=== PATIENT | female | born 1950 | race Caucasian/White ===

== ENCOUNTER 2020-08-16 11:58 | Emergency (ER) | payer MEDICARE ==
[2020-08-16 13:21] LABS: #Monocytes 0.4 10x3/uL (0.0-1.1); #Neutrophils 3.9 10x3/uL (1.5-8.4); %Basophils 0.3 % (0.0-2.0); %Eosinophils 0.6 % (0.0-6.0); %Lymphocytes 33.6 % (18.0-47.0); %Monocytes 5.8 % (0.0-10.0); %Neutrophils 59.5 % (40.0-75.0); Hemoglobin 13.6 g/dL (12.0-15.5); Mean Corpuscular HGB CONC 32.7 g/dL (32.0-36.0); Mean Corpuscular Hemoglobin 32.2 pg (27.0-33.0); Mean Corpuscular Volume 98.3 fl (81.6-98.3); Mean Platelet Volume 10.3 fl (7.4-10.4); Platelet Count 256 10x3/uL (150-450); RBC Distribution Width 13.1 % (11.5-14.5); Red Blood Cell (RBC) Count 4.23 10x6/uL (3.90-5.03); White Blood Cell (WBC) Count 6.5 10x3/uL (3.5-10.5)
[2020-08-16 13:31] LABS: ALT (SGPT) 21 U/L (8-55); AST (SGOT) 31 U/L (5-34); Albumin 4.6 g/dL (3.4-4.8); Alkaline Phosphatase 95 U/L (40-110); Anion Gap 14 mmol/L (10-20); BUN (Urea Nitrogen) 20 mg/dL (9.8-20.1); Bilirubin, Total 0.5 mg/dL (0.2-1.2); Calc. Creatinine Clearance 0 mL/min (70-130); Calcium 9.9 mg/dL (7.8-10.44); Carbon Dioxide 27 mmol/L (23-31); Chloride 104 mmol/L (98-107); Globulin 3.5 g/dL (2.4-3.5); Glucose 107 mg/dL (83-110); Potassium 3.8 mmol/L (3.5-5.1); Protein, Total 8.1 g/dL (5.8-8.1); Sodium 141 mmol/L (136-145)
== END 2020-08-16 15:11 | disposition home or self-care (01) ==
LOC: CSHERS 11:58
DX: M54.12 Radiculopathy, cervical region (principal)
CPT/HCPCS: 70496; 70498; 71045; 80053; 84484; 85025; 93005

== ENCOUNTER 2021-11-09 08:08 | Observation (INO) | payer MEDICARE ==
[2021-11-09 08:58] LABS: #Eosinphils 0.1 10x3/uL (0.0-0.5); #Monocytes 0.3 10x3/uL (0.0-1.1); #Neutrophils 3.6 10x3/uL (1.5-8.4); %Basophils 0.7 % (0.0-2.0); %Eosinophils 1.1 % (0.0-6.0); %Lymphocytes 27.1 % (18.0-47.0); %Monocytes 5.9 % (0.0-10.0); %Neutrophils 64.7 % (40.0-75.0); Hemoglobin 13.1 g/dL (12.0-15.5); Mean Corpuscular HGB CONC 33.6 g/dL (32.0-36.0); Mean Corpuscular Hemoglobin 31.3 pg (27.0-33.0); Mean Corpuscular Volume 93.1 fl (81.6-98.3); Mean Platelet Volume 9.9 fl (7.4-10.4); Platelet Count 258 10x3/uL (150-450); Red Blood Cell (RBC) Count 4.19 10x6/uL (3.90-5.03); White Blood Cell (WBC) Count 5.6 10x3/uL (3.5-10.5)
[2021-11-09 09:09] LABS: ALT (SGPT) 10 U/L (8-55); AST (SGOT) 20 U/L (5-34); Albumin 4.4 g/dL (3.4-4.8); Alkaline Phosphatase 96 U/L (40-110); Anion Gap 14 mmol/L (10-20); BUN (Urea Nitrogen) 11 mg/dL (9.8-20.1); Bilirubin, Total 0.2 mg/dL (0.2-1.2); Calc. Creatinine Clearance 0 mL/min (70-130); Calcium 9.7 mg/dL (7.8-10.44); Carbon Dioxide 29 mmol/L (23-31); Chloride 101 mmol/L (98-107); Globulin 2.9 g/dL (2.4-3.5); Glucose 134 mg/dL (83-110); Potassium 4.3 mmol/L (3.5-5.1); Protein, Total 7.3 g/dL (5.8-8.1); Sodium 140 mmol/L (136-145)
[2021-11-09] MEDS ORDERED: Lidocaine 1% w/Epinephrine 1:100K 20 ML VIAL ONE (09:43)
[2021-11-09 09:49] LABS: Bilirubin Neg (Negative); Blood, Urine Negative (Negative); Clarity Clear (Clear); Glucose, Urine (Dipstick) Normal (Negative); Ketone, Urine Negative (Negative); Leukocyte Negative (Negative); Nitrite Negative (Negative); Protein, Urine (Dipstick) Negative (Neg-Trace); Specific Gravity, Urine 1.005 (1.002-1.036); Urobilinogen Normal mg/dL (Less than 2)
[2021-11-09] MEDS ORDERED: Aspirin 325 MG TAB ONE (09:51)
[2021-11-09] MEDS ORDERED: Boostrix 0.5 ML (Tdap) VIAL ONE ×2 (09:51→10:40)
[2021-11-09] MEDS ORDERED: Iopamidol 370 76% 100 ML VIAL ONE (10:29)
[2021-11-09] MEDS ORDERED: hydrALAZINE 20 MG/ML VIAL SLOW IVP PRN (10:47)
[2021-11-09] MEDS ORDERED: Acetaminophen 325 MG TAB PO PRN (10:47)
[2021-11-09 12:43] VITALS: BMI 22.6
[2021-11-09] MEDS ORDERED: Atorvastatin Calcium 40 MG TAB PO SCH (21:00)
[2021-11-09] MEDS ORDERED: Morphine 4 MG/ML VIAL SLOW IVP SCH (23:30)
[2021-11-10] MEDS: Morphine 2 MG/ML VIAL SLOW IVP PRN ×2 (04:42→09:20)
[2021-11-10 05:15] LABS: #Eosinphils 0.1 10x3/uL (0.0-0.5); #Monocytes 0.6 10x3/uL (0.0-1.1); #Neutrophils 5.4 10x3/uL (1.5-8.4); %Basophils 0.4 % (0.0-2.0); %Eosinophils 0.7 % (0.0-6.0); %Monocytes 7.6 % (0.0-10.0); %Neutrophils 64.1 % (40.0-75.0); Hemoglobin 14.3 g/dL (12.0-15.5); Mean Corpuscular HGB CONC 35.1 g/dL (32.0-36.0); Mean Corpuscular Hemoglobin 32.1 pg (27.0-33.0); Mean Corpuscular Volume 91.3 fl (81.6-98.3); Mean Platelet Volume 10.2 fl (7.4-10.4); Platelet Count 289 10x3/uL (150-450); RBC Distribution Width 12.1 % (11.5-14.5); Red Blood Cell (RBC) Count 4.46 10x6/uL (3.90-5.03); White Blood Cell (WBC) Count 8.4 10x3/uL (3.5-10.5)
[2021-11-10 05:30] LABS: Anion Gap 16 mmol/L (10-20); BUN (Urea Nitrogen) 12 mg/dL (9.8-20.1); Calc. Creatinine Clearance 64 mL/min (70-130); Calcium 9.9 mg/dL (7.8-10.44); Carbon Dioxide 27 mmol/L (23-31); Cardiac Risk 4.4 (Less than 4.5); Chloride 102 mmol/L (98-107); Cholesterol 275 mg/dl (< 200 Desired); Glucose 117 mg/dL (83-110); HDL Cholesterol 63 mg/dL (>60 Neg Risk); LDL Cholesterol, Calculated 166 mg/dL; Potassium 3.7 mmol/L (3.5-5.1); Sodium 141 mmol/L (136-145); Triglycerides 229 mg/dL (Less than 150)
[2021-11-10] MEDS ORDERED: Aspirin 81 mg Enteric Coated Tablet PO SCH (09:00)
[2021-11-10 11:15] VITALS: BP 134/63; TEMP 98
== END 2021-11-10 11:05 | disposition home or self-care (01) ==
LOC: CSHERS 08:08 → CSHTELE 11:26
PROVIDERS: ADMIT Internal Medicine; ATTEND Internal Medicine
DX: R55 Syncope and collapse (principal); R41.82 Altered mental status, unspecified; R47.81 Slurred speech; S05.42XA Penetrating wound of orbit with or without foreign body, left eye, initial encounter; I70.0 Atherosclerosis of aorta; Z20.822 Contact with and (suspected) exposure to COVID-19; Z79.82 Long term (current) use of aspirin; Z79.899 Other long term (current) drug therapy; Z91.048 Other nonmedicinal substance allergy status; Z86.73 Personal history of transient ischemic attack (TIA), and cerebral infarction without residual deficits; W18.30XA Fall on same level, unspecified, initial encounter; Y92.009 Unspecified place in unspecified non-institutional (private) residence as the place of occurrence of the external cause
CPT/HCPCS: 12011; 51701; 70450; 70496; 70498; 70551; 71045; 72125; 80048; 80053; 80061; 81003; 82962; 84484; 85025 ×2; 90471; 90715; 93005; 93306; 94760; 96374; 96375; 96376; 97116; 97139; 99285; G0378 ×3; J2270; U0003; U0005; 36415; 36416; J0360; Q9967

== ENCOUNTER 2022-05-15 09:43 | Outpatient (CLI) | payer MEDICARE ==
[2022-05-15] MEDS ORDERED: Sodium Bicarbonate 2.5 MEQ/5 ML VIAL ONE (09:54)
[2022-05-15] MEDS ORDERED: Lidocaine 1% PF 5 ML VIAL ONE (09:54)
[2022-05-15 10:37] VITALS: BP 143/79; TEMP 98.3
[2022-05-18] MEDS ORDERED: FLU VACC QS2022-23(65YR UP)/PF 240 MCG/0.7 ML SYRINGE IM ONE (11:30)
== END 2022-05-15 11:48 | disposition home or self-care (01) ==
LOC: CSHRAD 09:43
PROVIDERS: ATTEND Specialist
DX: M54.13 Radiculopathy, cervicothoracic region (principal); Z98.890 Other specified postprocedural states; M47.812 Spondylosis without myelopathy or radiculopathy, cervical region
CPT/HCPCS: 62302; 72126

== ENCOUNTER 2022-09-23 08:14 | Inpatient (IN) | payer MEDICARE ==
[2022-09-23] MEDS ORDERED: Dextrose 50% Abboject 50 ML SYRINGE ONE (08:30)
[2022-09-23] MEDS ORDERED: Iopamidol 370 76% 100 ML VIAL ONE (08:54)
[2022-09-23 08:56] LABS: Hemoglobin 13.9 g/dL (12.0-15.5); Mean Corpuscular HGB CONC 33.6 g/dL (32.0-36.0); Mean Corpuscular Hemoglobin 31.1 pg (27.0-33.0); Mean Corpuscular Volume 92.6 fl (81.6-98.3); Mean Platelet Volume 10.3 fl (7.4-10.4); Platelet Count 211 10x3/uL (150-450); RBC Distribution Width 13.2 % (11.5-14.5); Red Blood Cell (RBC) Count 4.47 10x6/uL (3.90-5.03); White Blood Cell (WBC) Count 9.1 10x3/uL (3.5-10.5)
[2022-09-23 09:02] LABS: PTT 25.2 sec (22.0-33.0); Prothrombin Time 10.3 sec (9.5-12.1)
[2022-09-23 09:09] LABS: MDiff Complete? YES
[2022-09-23 09:16] LABS: ALT (SGPT) 14 U/L (8-55); AST (SGOT) 22 U/L (5-34); Albumin 4.5 g/dL (3.4-4.8); Alkaline Phosphatase 116 U/L (40-110); Anion Gap 19 mmol/L (10-20); BUN (Urea Nitrogen) 12 mg/dL (9.8-20.1); Band 5 % (5-11); Bilirubin, Total 0.6 mg/dL (0.2-1.2); CK (CPK) 233 U/L (29-168); Calc. Creatinine Clearance 0 mL/min (70-130); Calcium 9.6 mg/dL (7.8-10.44); Carbon Dioxide 22 mmol/L (23-31); Chloride 101 mmol/L (98-107); Estimated GFR 70; Globulin 3.3 g/dL (2.4-3.5); Glucose 96 mg/dL (83-110); Lipase 5 U/L (8-78); Lymphocytes 7 % (21-51); Monocytes 3 % (0-10); Neutrophil 85 % (42-75); Potassium 3.5 mmol/L (3.5-5.1); Protein, Total 7.8 g/dL (5.8-8.1); Sodium 138 mmol/L (136-145)
[2022-09-23] MEDS ORDERED: Aspirin Chewable 81 MG TAB ONE (09:16)
[2022-09-23 09:17] LABS: Acetaminophen Less than 10.0 mcg/mL (10.0-30.0); Alcohol Less than 10 mg/dL (Less than 10); Salicylate Less than 8.0 mg/dL (15.0-30.0)
[2022-09-23 09:18] LABS: Platelet Morphology Comment Appears Adequate
[2022-09-23 09:19] LABS: RBC Morphology Normal
[2022-09-23 09:39] LABS: Bilirubin Neg (Negative); Blood, Urine 10 (Negative); Clarity Clear (Clear); Glucose, Urine (Dipstick) >=1000 mg/dL (Negative); Ketone, Urine Negative (Negative); Leukocyte Negative (Negative); Nitrite Negative (Negative); Protein, Urine (Dipstick) Negative (Neg-Trace); Urobilinogen Normal mg/dL (Less than 2)
[2022-09-23 09:47] LABS: Amphetamine Not Detected (NotDetected); Barbiturates Screen Not Detected (NotDetected); Benzodiazepine Screen Not Detected (NotDetected); Cocaine Metabolite Screen Not Detected (NotDetected); Methadone Not Detected (NotDetected); Methamphetamine Not Detected (NotDetected); Opiate Screen Not Detected (NotDetected); Oxycodone Screen Detected (NotDetected); Phencyclidine (PCP) Not Detected (NotDetected); THC/Cannabinoid Screen Not Detected (NotDetected); Tricyclic Screen Not Detected (NotDetected)
[2022-09-23 09:51] LABS: Bacteria/HPF None Seen HPF (None Seen); RBC/HPF 0-3 HPF (0-3); Squamous Epithelial 0-3 HPF (0-3); WBC/HPF None Seen HPF (0-3)
[2022-09-23 10:25] LABS: SARS-CoV-2 NAA Rapid Test Not Detected (NotDetected)
[2022-09-23] MEDS ORDERED: cefTRIAXone (ROCEPHIN) 2 GM VIAL ONE (11:42)
[2022-09-23] MEDS ORDERED: Azithromycin 500 MG VIAL ONE (11:43)
[2022-09-23] MEDS ORDERED: Ondansetron PF 4 MG/2 ML Vial IVP PRN (11:46)
[2022-09-23] MEDS ORDERED: Acetaminophen 325 MG TAB PO PRN ×2 (11:46→14:12)
[2022-09-23] MEDS ORDERED: Ondansetron ODT 4 MG TAB PO PRN (11:46)
[2022-09-23] MEDS ORDERED: Dextrose 50% Abboject 50 ML SYRINGE SLOW IVP PRN (12:24)
[2022-09-23] MEDS ORDERED: Dextrose 5% in Water 1,000 ML IV PRN (12:24)
[2022-09-23 13:07] LABS: Troponin I Less than 0.010 ng/mL (< 0.028)
[2022-09-23 13:16] LABS: Free T4 (Free Thyroxine) 0.74 ng/dL (0.70-1.48)
[2022-09-23] MEDS ORDERED: Gabapentin 300 MG CAP ONE (13:53)
[2022-09-23] MEDS ORDERED: Acetaminophen 325 MG TAB ONE (13:56)
[2022-09-23] MEDS ORDERED: oxyCODONE 5 MG TAB ONE (13:56)
[2022-09-23] MEDS: Gabapentin 300 MG CAP PO SCH ×2 (14:15→22:17)
[2022-09-23] MEDS: oxyCODONE 5 MG TAB PO PRN ×2 (14:17→22:16)
[2022-09-23 15:12] LABS: Troponin I Less than 0.010 ng/mL (< 0.028)
[2022-09-23 18:16] VITALS: BMI 22.3
[2022-09-23] MEDS: Sodium Chloride 0.9% 1,000 ML IV SCH (18:26)
[2022-09-24 06:05] LABS: #Monocytes 0.5 10x3/uL (0.0-1.1); #Neutrophils 9.2 10x3/uL (1.5-8.4); %Basophils 0.1 % (0.0-2.0); %Eosinophils 0.2 % (0.0-6.0); %Lymphocytes 8.8 % (18.0-47.0); %Monocytes 4.3 % (0.0-10.0); %Neutrophils 86.3 % (40.0-75.0); Hemoglobin 11.5 g/dL (12.0-15.5); Mean Corpuscular Hemoglobin 31.2 pg (27.0-33.0); Mean Corpuscular Volume 91.6 fl (81.6-98.3); Mean Platelet Volume 10.7 fl (7.4-10.4); Platelet Count 162 10x3/uL (150-450); RBC Distribution Width 13.2 % (11.5-14.5); Red Blood Cell (RBC) Count 3.69 10x6/uL (3.90-5.03); White Blood Cell (WBC) Count 10.6 10x3/uL (3.5-10.5)
[2022-09-24 06:16] LABS: Anion Gap 15 mmol/L (10-20); BUN (Urea Nitrogen) 9 mg/dL (9.8-20.1); Calc. Creatinine Clearance 69 mL/min (70-130); Calcium 8.9 mg/dL (7.8-10.44); Carbon Dioxide 23 mmol/L (23-31); Chloride 108 mmol/L (98-107); Estimated GFR 89; Glucose 103 mg/dL (83-110); Sodium 142 mmol/L (136-145)
[2022-09-24] MEDS: Sodium Chloride 0.9% 1,000 ML IV SCH (06:50)
[2022-09-24] MEDS: oxyCODONE 5 MG TAB PO PRN (08:14)
[2022-09-24] MEDS: Gabapentin 300 MG CAP PO SCH (08:14)
[2022-09-24] MEDS ORDERED: Aspirin 81 mg Enteric Coated Tablet PO SCH (09:00)
[2022-09-24] MEDS ORDERED: Rosuvastatin 20 MG TAB PO SCH (09:00)
[2022-09-24] MEDS ORDERED: Bupropion 150 MG XL TAB PO SCH (09:00)
[2022-09-24] MEDS ORDERED: Clopidogrel Bisulfate 75 MG TAB PO SCH (09:00)
[2022-09-24 09:05] VITALS: BP 142/60; TEMP 98
[2022-09-24] MEDS ORDERED: cefTRIAXone\\ROCEPHIN 1 GM in Sodium Chloride 0.9% 100 ML IVPB SCH (12:00)
[2022-09-24] MEDS ORDERED: Azithromycin 500 MG in Sodium Chloride 0.9% 250 ML 250 ML IVPB SCH (12:30)
== END 2022-09-24 11:02 | disposition home or self-care (01) | DRG 871 ==
LOC: CSHERS 08:14 → CSHERHOLD 14:08 → CSHTELE 15:55
PROVIDERS: ADMIT Internal Medicine; ATTEND Internal Medicine
DX: A41.9 Sepsis, unspecified organism (principal); J18.9 Pneumonia, unspecified organism; G89.29 Other chronic pain; Z20.822 Contact with and (suspected) exposure to COVID-19; M54.9 Dorsalgia, unspecified; E16.2 Hypoglycemia, unspecified; M19.90 Unspecified osteoarthritis, unspecified site; Z90.49 Acquired absence of other specified parts of digestive tract; Z86.73 Personal history of transient ischemic attack (TIA), and cerebral infarction without residual deficits; Z79.02 Long term (current) use of antithrombotics/antiplatelets; Z79.899 Other long term (current) drug therapy; Z91.09 Other allergy status, other than to drugs and biological substances; Z79.82 Long term (current) use of aspirin; Z90.710 Acquired absence of both cervix and uterus
CPT/HCPCS: 36415; 36416; 70450; 71045; 71275; 80048; 80053; 80306; 80307; 81003; 81015; 82140; 82550; 83605; 83690; 83880; 84439; 84443; 84481; 84484; 85025; 85610; 85730; 87040; 87086; 93005; 94760; J0456; J0696; J7050; J7999; Q9967; U0002

== ENCOUNTER 2022-12-08 07:58 | Outpatient (CLI) | payer MEDICARE ==
[~2022-12-08 07:58] MED LIST: Lidocaine 1% PF 5 ML VIAL ONE; Sodium Bicarbonate 2.5 MEQ/5 ML VIAL ONE
[2022-12-08 08:50] VITALS: BP 151/98; TEMP 97.7
[2022-12-08] MEDS ORDERED: Iopamidol-M 200 41% 10 ML VIAL FS ONE (10:11)
== END 2022-12-08 09:30 | disposition home or self-care (01) ==
LOC: CSHRAD 07:58
PROVIDERS: ATTEND Surgery
DX: M79.606 Pain in leg, unspecified (principal); M54.50 Low back pain, unspecified; M47.816 Spondylosis without myelopathy or radiculopathy, lumbar region; Z98.890 Other specified postprocedural states
CPT/HCPCS: 62304; 72132

== ENCOUNTER 2023-05-22 13:29 | Outpatient (CLI) | payer MEDICARE | END 2023-05-22 13:30 | disposition home or self-care (01) | LOC: CSHMRI 13:29 | PROVIDERS: ATTEND Orthopaedic Surgery | DX: M24.811 Other specific joint derangements of right shoulder, not elsewhere classified (principal) ==

== ENCOUNTER 2023-11-05 09:44 | Outpatient (CLI) | payer MEDICARE | END 2023-11-05 09:45 | disposition home or self-care (01) | LOC: CSHRAD 09:44 | PROVIDERS: ATTEND Otolaryngology Plastic Surgery within the Head & Neck | DX: R47.02 Dysphasia (principal); K22.4 Dyskinesia of esophagus | CPT/HCPCS: 74220 ==

== ENCOUNTER 2024-03-28 15:24 | Outpatient (CLI) | payer MEDICARE | END 2024-03-28 15:25 | disposition home or self-care (01) | LOC: CSHCP 15:24 | PROVIDERS: ATTEND Internal Medicine Critical Care Medicine | DX: R05.3 Chronic cough (principal) | CPT/HCPCS: 94060; 94726; 94729; 94760 ==

== ENCOUNTER 2024-06-03 15:59 | Emergency (ER) | payer MEDICARE ==
[2024-06-03] MEDS ORDERED: Sulfameth/Trimethoprim DS 800-160mg TAB ONE (17:06)
[2024-06-03] MEDS ORDERED: Ibuprofen 200 MG TAB ONE (17:06)
== END 2024-06-03 17:15 | disposition home or self-care (01) ==
LOC: CSHERS 15:59
DX: S91.312A Laceration without foreign body, left foot, initial encounter (principal); S90.32XA Contusion of left foot, initial encounter; L03.116 Cellulitis of left lower limb; Z55.0 Illiteracy and low-level literacy; W20.8XXA Other cause of strike by thrown, projected or falling object, initial encounter
CPT/HCPCS: 99283

== ENCOUNTER 2024-06-23 11:09 | Outpatient (CLI) | payer MEDICARE | END 2024-06-23 11:10 | disposition home or self-care (01) | LOC: CSHMRI 11:09 | PROVIDERS: ATTEND Specialist | DX: M51.16 Intervertebral disc disorders with radiculopathy, lumbar region (principal); M41.86 Other forms of scoliosis, lumbar region; Z98.1 Arthrodesis status; M43.27 Fusion of spine, lumbosacral region; M48.061 Spinal stenosis, lumbar region without neurogenic claudication | CPT/HCPCS: 72148 ==